=== PATIENT | male | born 1960 | race Caucasian/White ===

== ENCOUNTER 2019-01-10 21:37 | Inpatient (IN) | payer MEDICARE ==
[~2019-01-10] VITALS: Ht 172.7 cm; Wt 69.9 kg
[2019-01-10 22:34] LABS: BASOPHILS % (AUTO) 0.6 % (0.0-2.0); EOSINOPHILS # (AUTO) 0.3 K/uL (0.0-0.7); EOSINOPHILS % (AUTO) 4.7 % (0.0-7.0); HEMATOCRIT 47.7 % (36.7-47.1); HEMOGLOBIN 16.1 g/dL (12.5-16.3); LYMPHOCYTES # (AUTO) 1.3 K/uL (20.0-40.0); LYMPHOCYTES % (AUTO) 21.3 % (20.5-51.5); MEAN CORPUSCULAR HEMOGLOBIN 28.8 uug (23.8-33.4); MEAN CORPUSCULAR HGB CONC 34 g/dL (32.5-36.3); MEAN CORPUSCULAR VOLUME 85.3 fL (73.0-96.2); MONOCYTES # (AUTO) 0.7 K/uL (2.0-10.0); MONOCYTES % (AUTO) 11.8 % (0.0-11.0); NEUTROPHILS # (AUTO) 3.7 K/uL (1.8-8.9); NEUTROPHILS % (AUTO) 61.6 % (38.5-71.5); PLATELET COUNT (AUTO) 187 K/uL (152-348); RED BLOOD CELL COUNT(AUTO) 5.58 MIL/uL (4.06-5.63)
[2019-01-10 22:38] LABS: *BILIRUBIN,URIN NEGATIVE (NEGATIVE); *BLOOD, URINE NEGATIVE (NEGATIVE); *CLARITY,URINE CLEAR (CLEAR); *COLOR,URINE YELLOW (YELLOW); *KETONES,URINE NEGATIVE (NEGATIVE); *UROBILINOGEN,URINE 0.2 E.U./dl (NORMAL); LEUKOCYTE ESTERASE ,URINE NEGATIVE (NEGATIVE); NITRITE, URINE NEGATIVE (NEGATIVE); UGLUCOSE NEGATIVE (NEGATIVE)
[2019-01-10 22:47] LABS: ALANINE AMINOTRANSFERASE 68 U/L (16-63); ALKALINE PHOSPHATASE 92 U/L (50-136); ASPARTATE AMINOTRANSFERASE 37 U/L (15-37); BILIRUBIN,DIRECT 0.1 mg/dL (0.0-0.2); BILIRUBIN,TOTAL 0.4 mg/dL (0.2-1.0); CARBON DIOXIDE 32 mmol/L (21-32); CHLORIDE 100 mmol/L (98-107); CREATININE 0.9 mg/dL (0.6-1.3); GLUCOSE 103 mg/dL (74-106); POTASSIUM 4.1 mmol/L (3.5-5.1); TOTAL PROTEIN, SERUM 7.4 g/dL (6.4-8.2); UREA NITROGEN, BLOOD 22 mg/dL (7-18)
[2019-01-10 22:48] LABS: ETHANOL < 3 MG/DL (0-0)
[2019-01-10 22:54] LABS: ACETAMINOPHEN < 2.0 ug/mL (10-30); THYROID STIMULATING HORMONE 2.028 mIU/mL (0.358-3.740)
[2019-01-10 22:55] LABS: *AMPHETAMINE, URINE NEGATIVE (NEGATIVE); *BARBITURATE, URINE NEGATIVE (NEGATIVE); *CANNABINOID, URINE NEGATIVE (NEGATIVE); *COCCAINE, URINE NEGATIVE (NEGATIVE); *OPIATE, URINE NEGATIVE (NEGATIVE); *PHENCYCLIDINE SCREEN,URINE NEGATIVE (NEGATIVE)
--- NOTE | 2019-01-10 23:11 | NUR ---
Medically cleared by Dr Dao.
--- NOTE | 2019-01-10 23:32 | NUR ---
Patient was wanded per protocol by hospital's secmarimar esqueda.
--- NOTE | 2019-01-10 23:40 | NUR ---
Patient tolerated meal with no N/V noted.
[2019-01-10] MEDS ORDERED: ZOLPIDEM 5 MG TABLET PO PRN (23:45)
[2019-01-10] MEDS ORDERED: ACETAMINOPHEN 325 MG TABLET PO PRN (23:45)
[2019-01-10] MEDS ORDERED: QUETIAPINE FUMARATE 25 MG TABLET PO PRN (23:45)
[2019-01-10] MEDS ORDERED: MAG HYDROX/AL HYDROX/SIMETH 30 ML LIQUID UDC PO PRN (23:45)
[2019-01-10] MEDS ORDERED: MAGNESIUM HYDROXIDE 30 ML LIQUID UDC PO PRN (23:45)
--- NOTE | 2019-01-10 23:48 | NUR ---
Transfered to MHU via gurny with no distress noted.
[2019-01-10 23:50] VITALS: BP 128/95
[2019-01-10 23:52] VITALS: BP 128/95
[2019-01-11] MEDS ORDERED: DIPH25CA83 PO (00:09)
[2019-01-11] MEDS ORDERED: CITA20TA16 PO (00:09)
[2019-01-11] MEDS ORDERED: QUET25TA PO (00:09)
[2019-01-11] MEDS ORDERED: ACET325C7 PO (00:09)
[2019-01-11] MEDS ORDERED: LORA1TAB PO (00:09)
--- NOTE | 2019-01-11 01:29 | NUR ---
Received to care from the emergency room at 2350, on a 72 hour hold for danger to others, a transfer from [facility], According to the hold, he had been alleging that his food and drink were tainted and poisoned, and today made a verbal threat to staff, when they tried to remove old and spoiled food and drink from his room. Upon arrival on the unit, he denied SI, or desire to harm self, or any of the incidents described in the hold. he initially was calm and cooperative. pts booklet was given, and was advised of his hold. After the course of the interview, he began to become paranoid of staff regarding the disposition of his belongings. he was reassured and apprised of their status, but became noncompliant when staff tried to redirect him, insisting on standing in the doorway, at the nurses room, where his belongings were being checked. he eventually went to bed around 0100. as of 128, he remains awake, in bed. declined a PRN for insomnia. no distress noted. will continue to monitor closely.
[2019-01-11] MEDS ORDERED: Medication Not On Formulary EA (Acetaminophen (Tylenol) 650 MG) PO SCH (02:00)
[2019-01-11] MEDS ORDERED: Medication Not On Formulary EA (Diphenhydramine Hcl (Benadryl) 25 MG) PO SCH (02:00)
--- NOTE | 2019-01-11 06:36 | NUR ---
Refused AM labs
--- NOTE | 2019-01-11 06:49 | NUR ---
slept fairly well. remains suspicious and paranoid, at times.
[2019-01-11 07:30] VITALS: BP 101/68
--- NOTE | 2019-01-11 12:36 | NUR ---
Social Work Note/Initial Discharge Plan: Patient currently resides at [facility] [address] [place] [address] ([phone]). Spoke with Josie the tender coordinator at the facility who stated that they will accept pt back when he is stable. custodial worker will continue to work with patient, family, and MD to ensure a safe and proper discharge plan.
--- NOTE | 2019-01-11 12:43 | NUR ---
Social Work Note/Conservator Contact: Mortgage Loan Coordinator tried to get in touch with patient's conservator from the Public Guardian Medhat Biswas ([phone]) and left a voicemail, waiting for a call back. Mortgage Loan Coordinator also called the number stated in the voicemail alondra in case Medhat is not reachable, ([phone]) for the carbon paper interleafer deputy, but the phone rings and does not go to voicemail.
--- NOTE | 2019-01-11 13:00 | NUR ---
Social Work Note/Firearms Report (DOJ): Fashion Merchandiser completed and submitted a DPJ firearms report for 5150 grave disability and danger to others certification. A copy of report has been placed in patient chart.
[2019-01-11 16:00] VITALS: BP 112/71
[2019-01-11 20:05] VITALS: BP 106/68
[2019-01-11] MEDS: risperiDONE 0.5 MG TABLET PO SCH (20:39)
--- NOTE | 2019-01-11 22:30 | NUR ---
received to care, visible at nurses station, pleasant upon approach, but interacts minimally. started on risperdal this evening. he was compliant with medications, snack, and staff direction. as of 2229, he appears to be asleep. no distress noted. will continue to monitor closely.
--- NOTE | 2019-01-12 06:00 | NUR ---
slept 5.5 hours total. continues to sleep. no distress noted.
[2019-01-12 07:30] VITALS: BP 117/82
[2019-01-12] MEDS: FLUOXETINE HCL 10 MG CAPSULE PO SCH (09:02)
[2019-01-12 16:00] VITALS: BP 105/70
[2019-01-12] MEDS: risperiDONE 0.5 MG TABLET PO SCH (20:34)
[2019-01-12] MEDS: diphenhydrAMINE 25 MG CAP PO PRN (21:34)
[2019-01-12 21:44] VITALS: BP 107/62
--- NOTE | 2019-01-13 01:00 | NUR ---
received to care, sitting in his room, minimal disclosure, but pleasant upon approach. compliant with medications, snack, and staff direction. PRN for insomnia was offered, but he refused. he did agree to take PRN benadryl, to help calm him down, but it was ineffective. he has slept intermittently, since then. intrusive at times. needs frequent redirection. as of 99, he appears to be asleep. no distress noted. will continue to monitor closely.
--- NOTE | 2019-01-13 06:00 | NUR ---
slept 2.25 hours, total. offered PRN ambien earlier, but he declined. remains suspicious and paranoid, at times. currently at nurses station, appearing distracted by internal stimuli. attempted to redirect him from the nurses station, but he continues to stand there.
--- NOTE | 2019-01-13 06:30 | NUR ---
currently in his room. no distress noted.
[2019-01-13 07:30] VITALS: BP 110/71
[2019-01-13] MEDS: FLUOXETINE HCL 10 MG CAPSULE PO SCH (08:51)
[2019-01-13 16:00] VITALS: BP 103/64
[2019-01-13] MEDS: risperiDONE 0.5 MG TABLET PO SCH (20:44)
[2019-01-13 20:54] VITALS: BP 117/69
--- NOTE | 2019-01-14 06:27 | NUR ---
PATIENT SLEPT FOR APPROX 6.45 HRS THROUGH THE NIGHT. HE WAS ABLE TO COMPLY WITH MEDICATION REGIMENT DIET AND PLAN OF CARE. HE CONTINUE HOARDING FOOD, UTENSILS, PAPERS.PT REQUIRED MULTIPLE REDIRECTIONS. NO AGGRESSIVE/COMBATIVE BX WAS NOTED DURING THE SHIFT. PATIENT REFUSED SHOWER THIS MORNING. WILL CONTINUE TO MONITOR.
[2019-01-14 07:30] VITALS: BP 113/74
[2019-01-14] MEDS: FLUOXETINE HCL 10 MG CAPSULE PO SCH (08:51)
[2019-01-14] MEDS ORDERED: risperiDONE 0.5 MG TABLET PO SCH (09:00)
--- NOTE | 2019-01-14 09:00 | NUR ---
ALERT AWARE WITH DISORIENTATION PATIENT TENDS TO KEEP FOOD AT HIS BEDSIDE DIFFICULTY CLEANING HIS BEDSIDE BECAUSE HE WANTS TO KEEP HIS UNEATEN FOOD SNACKS ETC IN HIS ROOM BUT HE IS COMPLIANT WITH MEDICATIONS WILL CONTINUE TO OBSERVE.
[2019-01-14 16:02] VITALS: BP 102/64
--- NOTE | 2019-01-14 17:56 | NUR ---
AMBULATORY IN THE HALLWAY WITH STEADY GAIT COMPLIANT WITH MEDICATIONS AND CARE.WILL CONTINUE TO OBSERVE AND PROVIDE SAFE AND THERAPEUTIC ENVIRONMENT AT ALL TIMES.
[2019-01-14] MEDS: risperiDONE 0.5 MG TABLET PO SCH (20:30)
--- NOTE | 2019-01-15 05:52 | NUR ---
GPS: Remain calm and cooperative. slept 3 hrs through the night. no agitation noted. resting in bed comfortably. no agitation noted at this time.
[2019-01-15 07:30] VITALS: BP 102/70
[2019-01-15] MEDS: FLUOXETINE HCL 10 MG CAPSULE PO SCH (08:31)
[2019-01-15] MEDS: risperiDONE 1 MG TABLET PO SCH (08:31)
[2019-01-15] MEDS: diphenhydrAMINE 25 MG CAP PO PRN (08:32)
[2019-01-15] MEDS ORDERED: risperiDONE 0.5 MG TABLET PO SCH ×2 (09:00→21:00)
--- NOTE | 2019-01-15 15:35 | NUR ---
GPS: Nursing Notes: Thought disorder: Patient is awake and responding to his name, impaired judgment, paranoid, refusing to shower since admission, poor appetite, hoarding his food, but not eating, using pillow case to magaly duty papers, gets easily angry when redirected, picking left over food from the trash, redirected, but continue to be resistant with nursing care, poor hygiene, asking for the phone, but keeping the phone on his bed and not making any phone calls, unable to formulate a viable plan for self care, prompting to participate in therapeutic groups, but refusing to participate, continue with treatment plan.
[2019-01-15 15:40] VITALS: BP 109/72
[2019-01-15 20:00] VITALS: BP 119/56
[2019-01-15] MEDS: risperiDONE 2 MG TABLET PO SCH (20:34)
--- NOTE | 2019-01-15 22:30 | NUR ---
received to care, visible in hallway, pleasant upon approach, but interacts minimally. compliant with medications, snack, and staff direction. as of 2200, he appears to be asleep. no distress noted. will continue to monitor closely.
--- NOTE | 2019-01-16 06:09 | NUR ---
slept 5.5 hours. has been very restless, awake intermittently ove the past several hours. continues to sleep. no distress noted.
[2019-01-16 07:30] VITALS: BP 111/70
[2019-01-16] MEDS: FLUOXETINE HCL 10 MG CAPSULE PO SCH (09:11)
[2019-01-16] MEDS: risperiDONE 1 MG TABLET PO SCH (09:14)
--- NOTE | 2019-01-16 10:23 | NUR ---
Individual Therapy Note: Electronic Sales And Service Technician provided patient with supportive counseling. Patient shared his concerns about showering and fearing his belongings will be stolen. Electronic Sales And Service Technician explained to the patient that his belongings are secured and no one will steal them, however, patient continues to remain paranoid and non compliant. circulation worker provided options for the patient about where he can keep his items and he continues to refuse. Electronic Sales And Service Technician directed the patient to the nurse and SPECIAL EDUCATION KINDERGARTEN TEACHER.
[2019-01-16] MEDS: risperiDONE-M 0.5 MG TAB.RAPDIS PO PRN (11:55)
--- NOTE | 2019-01-16 11:57 | NUR ---
GPS: Nursing Notes: Thought Disorder: Patient is awake and responding to his name, impaired judgment, paranoid behavior, believes that we are stealing from him, continue to magaly food and duty papers, picking up papers from the trash ban, stating "They are my personal papers... They are very important papers..", gets aggressive toward staff when redirected, refusing to let go of the trash, resistant with nursing care, unable to be redirected at this time, Edda LEON and staff review duty-trash papers that were thrown in the trash, but patient insisting in retrieving duty-trash papers, poor insight, unable to formulate a viable plan for self care, continue with treatment plan.
--- NOTE | 2019-01-16 12:10 | NUR ---
Social Work Note/Conservator: Industrial Automation Specialist was able to get in contact with Medhat Biswas patient's conservator from the office of public guardian. Medhat stated that he will help with placement when patient is ready for discharge. Industrial Automation Specialist asked Medhat to fax the conservatorship documentation today.
[2019-01-16 15:12] VITALS: BP 116/75
[2019-01-16] MEDS: risperiDONE 2 MG TABLET PO SCH (20:03)
[2019-01-16 20:52] VITALS: BP 106/71
--- NOTE | 2019-01-17 05:56 | NUR ---
Patient slept 3.45 hours. Up in briones, standing around, complaining about multiple things that happened during the day shift. Very difficult to redirect. Hoarding items in his room including portable phone used on unit for patients. Patient fixates on multiple subjects and is very paranoid about his items. In room sitting on the bed at this time. No acute distress noted. Continuing to monitor for safety.
[2019-01-17 07:30] VITALS: BP 99/66
--- NOTE | 2019-01-17 08:29 | NUR ---
Discharge Planning: Radiologic Technician faxed patient's referral packet to [facility] at [facility] ([phone]) however was denied due to not having enough medicare days and [facility] at [facility] ([phone]), however patient was denied from both facilities due to not having a primary diagnosis of dementia.
[2019-01-17] MEDS ORDERED: FLUOXETINE HCL 10 MG CAPSULE PO SCH (09:00)
[2019-01-17] MEDS: FLUOXETINE HCL 20 MG CAPSULE PO SCH (09:45)
[2019-01-17] MEDS: risperiDONE 1 MG TABLET PO SCH (09:45)
[2019-01-17 13:00] VITALS: BP 104/59
[2019-01-17 17:16] VITALS: BP 104/59
[2019-01-17] MEDS: DIVALPROEX 250 MG TABLET.DR PO SCH (20:28)
[2019-01-17] MEDS: risperiDONE 2 MG TABLET PO SCH (20:28)
[2019-01-17] MEDS ORDERED: DIVALPROEX 125 MG TABLET.DR PO SCH (21:00)
--- NOTE | 2019-01-17 21:06 | NUR ---
Received patient in his room, soft spoken, no behavioral issue at this time. med compliant. no sign or symptom of resp. distress, no indication of pain or discomfort.
[2019-01-17 23:10] VITALS: BP 110/74
[2019-01-18 07:30] VITALS: BP 111/75
[2019-01-18] MEDS: risperiDONE 1 MG TABLET PO SCH (08:18)
[2019-01-18] MEDS: FLUOXETINE HCL 20 MG CAPSULE PO SCH (08:18)
[2019-01-18] MEDS: DIVALPROEX 250 MG TABLET.DR PO SCH ×2 (08:18→20:43)
--- NOTE | 2019-01-18 08:22 | NUR ---
Discharge Planning: Mixed Animal Veterinarian faxed pt's referral packet to [facility] ([phone]) and patient is accepted to admit to this facility upon discharge.
--- NOTE | 2019-01-18 13:51 | NUR ---
Social Work Note/Conservator: Portable Track Crew Chief was trying to reach Medhat Biswas patient's conservator from the office of public guardian ([phone] or [phone]) however he was unreachable. Vashti the officer of the day was able to help this medical technical writer and requested to please have the conservatorship paperwork faxed to this medical technical writer and informed Vashti of the patient's placement options. Vashti will pass the message onto Medhat.
[2019-01-18 16:00] VITALS: BP 101/66
--- NOTE | 2019-01-18 16:11 | NUR ---
GPS: received patient Aox2, compliant with medication, patient likes collecting food in his room, explained that patient need to clean his room , patient remain in his room most of the time will continue monitor
[2019-01-18 20:00] VITALS: BP 112/77
[2019-01-18] MEDS: risperiDONE 2 MG TABLET PO SCH (20:43)
[2019-01-18] MEDS: TEMAZEPAM 7.5 MG CAPSULE PO SCH (20:44)
--- NOTE | 2019-01-19 06:34 | NUR ---
PATIENT CONTINUOUSLY ASKING FOR MILK AND OTHER FOOD ITEMS TO HOLD. REORIENT THE PATIENT AND SET TIME LIMITS. PATIENT REFUSED SHOWER DURING THE SHIFT. SLEPT ONLY FOR 1.45 HRS DURING THE SHIFT.
[2019-01-19 07:30] VITALS: BP 111/71
[2019-01-19] MEDS: risperiDONE 1 MG TABLET PO SCH (08:32)
[2019-01-19] MEDS: FLUOXETINE HCL 20 MG CAPSULE PO SCH (08:33)
[2019-01-19] MEDS: DIVALPROEX 250 MG TABLET.DR PO SCH ×2 (08:45→20:27)
--- NOTE | 2019-01-19 09:30 | NUR ---
Received pt. ambulatory, A/Ox3, verbally responsive. Pacing in the hallway. All due medications administered as ordered, pt. attempted to pocket medications during med pass. Frequent rounding performed. Denies pain or discomfort. Will continue to monitor.
[2019-01-19 15:52] VITALS: BP 104/75
[2019-01-19 20:13] VITALS: BP_SYST 112; BP_SYST 118; BP_DIAS 61; BP_DIAS 76
[2019-01-19] MEDS: risperiDONE 2 MG TABLET PO SCH (20:27)
[2019-01-19] MEDS: TEMAZEPAM 7.5 MG CAPSULE PO SCH (21:13)
[2019-01-20 07:30] VITALS: BP_SYST 106; BP_SYST 95; BP_DIAS 57; BP_DIAS 61
[2019-01-20 08:07] LABS: ALANINE AMINOTRANSFERASE 50 U/L (16-63); ASPARTATE AMINOTRANSFERASE 28 U/L (15-37); VALPROIC ACID < 3 ug/mL (50-100)
[2019-01-20] MEDS: FLUOXETINE HCL 20 MG CAPSULE PO SCH (08:13)
[2019-01-20] MEDS: DIVALPROEX 250 MG TABLET.DR PO SCH ×2 (08:13→21:55)
[2019-01-20] MEDS: risperiDONE 1 MG TABLET PO SCH (08:15)
[2019-01-20 16:00] VITALS: BP 106/72
--- NOTE | 2019-01-20 16:48 | NUR ---
GPS: PATIENT ALERT ORIENTEDX2, PATIENT COMPLIANT WITH MEDICATION, PATIENT STILL COLLECTING FOOD IN HIS BEDSIDE, PATIENT KEEPING SALAD, YOGURT , ENSURE, PATIENT DISORGANIZED, EDUCATED PATIENT ABOUT THE HOSPITAL POLICY, PATIENT AWARE OF THE UNIT POLICY, PATIENT ARGUE ABOUT CLEANING HIS ROOM, PATIENT ALSO NOT TAKING SHOWER FOR 5DAYS , CONFISCATED OLD FOOD STORED IN HIS DRAWER, WILL CONTINUE MONITOR
[2019-01-20] MEDS: risperiDONE-M 0.5 MG TAB.RAPDIS PO PRN (18:02)
--- NOTE | 2019-01-20 18:16 | NUR ---
PATIENT NOT EATING HIS DINNER TRAY, AND PRE OCCUPIED WITH THE FOOD ITEMS CONFISCATED IN HIS ROOM, NEEDS PROMPTING AND ALOT OF REDIRECTION
[2019-01-20 20:23] VITALS: BP 112/75
[2019-01-20] MEDS: TEMAZEPAM 7.5 MG CAPSULE PO SCH (21:55)
[2019-01-20] MEDS: risperiDONE 2 MG TABLET PO SCH (21:55)
--- NOTE | 2019-01-20 22:25 | NUR ---
Restoril 7.5mg wasted with MIRIAM Barron
--- NOTE | 2019-01-20 22:25 | NUR ---
GPS: NURSING NOTES: Wasted Restoril: Patient refused Restoril medication, staff wasted medication witness by freelance writer, but mistakenly entered in Pyxis as return instead of waste, pharmacy made aware.
--- NOTE | 2019-01-21 05:58 | NUR ---
Pt is uncooperative and refused all HS meds, Klonopin wasted with licensed staff.
[2019-01-21 08:15] VITALS: BP 99/71
[2019-01-21] MEDS: DIVALPROEX 250 MG TABLET.DR PO SCH ×3 (08:30→15:46)
[2019-01-21] MEDS: FLUOXETINE HCL 20 MG CAPSULE PO SCH (08:30)
[2019-01-21] MEDS: risperiDONE 1 MG TABLET PO SCH (08:31)
--- NOTE | 2019-01-21 15:49 | NUR ---
PT AGREEABLE TO TAKE 1300 DEPAKOTE MEDICATION AT THIS TIME WITH PROMPTING. PSYCHIATRIST DR. ALVARADO AT BEDSIDE.
[2019-01-21 16:18] VITALS: BP 105/63
[2019-01-21 20:00] VITALS: BP 104/64
[2019-01-22] MEDS: DIVALPROEX 250 MG TABLET.DR PO SCH ×4 (00:35→12:17)
[2019-01-22] MEDS: TEMAZEPAM 7.5 MG CAPSULE PO SCH (00:35)
[2019-01-22] MEDS: risperiDONE 2 MG TABLET PO SCH (00:35)
[2019-01-22 07:30] VITALS: BP 105/69
[2019-01-22] MEDS: risperiDONE 1 MG TABLET PO SCH (08:16)
[2019-01-22] MEDS: FLUOXETINE HCL 20 MG CAPSULE PO SCH (08:16)
--- NOTE | 2019-01-22 10:51 | NUR ---
Conservator Contact: Veneer Slicing Machine Operator left a voicemail for patients conservator from the office of public guardian, Medhat Biswas ([phone]) of patients discharge plan.
--- NOTE | 2019-01-22 10:51 | NUR ---
Discharge Note: Patient will be discharged to [facility]dc facility to [facility] [place] [address] ([phone]) via Ambulance transportation. Please arrange Ambulance transportation for patient to be picked up at 1:00PM. Library Supervisor spoke with , Piped Buttonhole Machine Operator ([phone]) who stated patient will be accepted at facility today. Patient is alert and oriented x3 and is not able to plan for self-care at this time but is willing to accept care provided for him at the facility. Patient denies suicidal or homicidal ideation. Patient is aware and agreeable with discharge plans. Patient has no supportive contacts at this time. Library Supervisor left a voicemail for patients conservator from the office of public guardian, Medhat Biswas ([phone]) of patients discharge plan. Patient presents with calm mood and congruent affect at this time. Patient will continue to follow-up with Psychiatrist Dr. Diaz and Event Specialist Food Demonstrator Dr. Noyola at [facility].
--- NOTE | 2019-01-22 11:24 | NUR ---
arranged ambulance for patient to transferred to SNF ,per ambulance co. since pt is ambulating medicare not cover for transportation,left massage in cherri RAMIREZ.waiting for respond
--- NOTE | 2019-01-22 12:01 | NUR ---
GPS: received patient Aox2-3, ambulatory, compliant with medication denies SI and HI ,with current discharge plan to [facility], Called and spoke with with discharge order and carried out, patient is aware and amenable with the discharge, home medication instruction is given , called and gave report to Adriana ADKINS of [facility] , transportation is set by charge nurse, will continue monitor
--- NOTE | 2019-01-22 13:53 | NUR ---
patient transferred to [facility] via ambulance, patient VS MD OMKAR aware
== END 2019-01-22 14:00 | DRG 885 ==
LOC: ER 21:39 → GPS 23:21
PROVIDERS: ADMIT Psychiatry & Neurology Psychiatry; ATTEND Nurse Practitioner Acute Care
DX: F33.3 Major depressive disorder, recurrent, severe with psychotic symptoms (principal); F42.8 Other obsessive-compulsive disorder; F84.5 Asperger's syndrome; K21.9 Gastro-esophageal reflux disease without esophagitis; N40.0 Benign prostatic hyperplasia without lower urinary tract symptoms; M19.90 Unspecified osteoarthritis, unspecified site; M41.9 Scoliosis, unspecified; J45.909 Unspecified asthma, uncomplicated; Z91.14 Patient's other noncompliance with medication regimen; Z91.19 Patient's noncompliance with other medical treatment and regimen
CPT/HCPCS: 36415; 80164; 80307; 84443; 84450; 84460; 85025; 85049; 93005; A4663; G0480; G0480-TC; J3490; Q0163